=== PATIENT | female | born 1945 | race Caucasian/White ===

== ENCOUNTER 2021-01-29 12:20 | Inpatient (IN) | payer MEDICARE, OTHER ==
[~2021-01-29] VITALS: Ht 160 cm; Wt 81.6 kg
--- NOTE | 2021-01-29 12:23 | NUR ---
PT BIB [facility] FROM HOME. C/O "LIGHT HEADEDNESS",LOW BP UPON EMS ARRIVAL,400 ML NS GIVEN. RFA #18G S/L. PT A.OX3. TOLERATING R/A WELL WITH NO SOB. DENIES PAIN AT THIS TIME. CONNECTED PT TO POX AND MONITOR.
[2021-01-29] MEDS ORDERED: IV NS 0.9% 1,000 ML BAG IV ONE (12:30)
--- NOTE | 2021-01-29 12:35 | NUR ---
RFA #18G S/L; PATENT AND INTACT. BLOOD COLLECTED AND GIVEN TO LAB
--- NOTE | 2021-01-29 12:38 | NUR ---
COVID SWAB DONE AND SENT TO LAB
[2021-01-29 12:51] LABS: BASOPHILS % (AUTO) 0.7 % (0.0-2.0); HEMATOCRIT 30 % (33-45); HEMOGLOBIN 9.8 g/dL (11.5-14.8); LYMPHOCYTES # (AUTO) 0.9 K/uL (0.8-4.8); LYMPHOCYTES % (AUTO) 20.2 % (20.0-44.0); MEAN CORPUSCULAR HGB CONC 33 g/dl (31.0-36.0); MEAN CORPUSCULAR VOLUME 85 fL (82-100); MONOCYTES # (AUTO) 0.6 K/uL (0.1-1.30); MONOCYTES % (AUTO) 13.9 % (2.0-12.0); NEUTROPHILS % (AUTO) 64.2 % (43.0-81.0); PLATELET COUNT (AUTO) 230 K/uL (150-450); RED BLOOD CELL COUNT(AUTO) 3.48 MIL/uL (4.0-5.2); WHITE BLOOD COUNT (AUTO) 4.7 K/uL (4.3-11.0)
[2021-01-29 12:58] LABS: CALCIUM, SERUM 8.1 mg/dL (8.5-10.1); CARBON DIOXIDE 25 mmol/L (21-32); CHLORIDE 99 mmol/L (98-107); CREATININE 1.3 mg/dL (0.6-1.3); GLUCOSE 141 mg/dL (74-106); POTASSIUM 4.1 mmol/L (3.5-5.1); SODIUM SERUM 134 mmol/L (136-145); UREA NITROGEN, BLOOD 19 mg/dL (7-18)
[2021-01-29 13:05] LABS: ALANINE AMINOTRANSFERASE 72 U/L (12-78); ALBUMIN 3.6 g/dL (3.4-5.0); ALKALINE PHOSPHATASE 50 U/L (46-116); ASPARTATE AMINOTRANSFERASE 53 U/L (15-37); BILIRUBIN,DIRECT 0.1 mg/dL (0.0-0.2); BILIRUBIN,TOTAL 0.2 mg/dL (0.2-1.0); TOTAL PROTEIN, SERUM 7.1 g/dL (6.4-8.2)
--- NOTE | 2021-01-29 13:06 | NUR ---
COVID-19 POSITIVE PER COVID.
--- NOTE | 2021-01-29 13:10 | NUR ---
MOVE SHEET SUBMITTED
--- NOTE | 2021-01-29 13:12 | NUR ---
OFFERED TOILETING X2. PT UNABLE TO URINATE AT THIS TIME. WILL TRY AGAIN LATER
--- NOTE | 2021-01-29 13:27 | NUR ---
PHARMACIST NOTIFED VIOLET HANSEN THAT MEDICATION BAMLANIVIMAB NOT AVAILABLE.
[2021-01-29] MEDS ORDERED: BAMLANIVIMAB EUA (INVESTIGA.) 700 MG in IV NS 0.9% 180 ML IV ONE (13:30)
--- NOTE | 2021-01-29 13:30 | NUR ---
EPIC CALLED TRIPLE VALVE TESTER PAGE.
[2021-01-29] MEDS ORDERED: BACL10TA PO (13:46)
[2021-01-29] MEDS ORDERED: AMLO-213 PO (13:46)
[2021-01-29] MEDS ORDERED: FERR325T23 PO (13:46)
[2021-01-29] MEDS ORDERED: CHOL100062 PO (13:46)
[2021-01-29] MEDS ORDERED: GABA-536 PO (13:46)
[2021-01-29] MEDS ORDERED: BETA15CR4 TP (13:46)
[2021-01-29] MEDS ORDERED: MAGN400T26 PO (13:46)
[2021-01-29] MEDS ORDERED: ICOS1CAP PO (13:46)
[2021-01-29] MEDS ORDERED: CYAN-51 PO (13:46)
[2021-01-29] MEDS ORDERED: SERT25TA PO (13:46)
[2021-01-29] MEDS ORDERED: ESOM40CA PO (13:46)
[2021-01-29] MEDS ORDERED: ISOS30TA86 PO (13:46)
[2021-01-29] MEDS ORDERED: CARV25TA2 PO (13:46)
[2021-01-29] MEDS ORDERED: CLON0.1T PO (13:46)
[2021-01-29] MEDS ORDERED: POTA10TA10 PO (13:46)
[2021-01-29] MEDS ORDERED: MYRBETRIQ PO (13:46)
[2021-01-29] MEDS ORDERED: LINA290C PO (13:46)
[2021-01-29] MEDS ORDERED: FURO40TA5 PO (13:46)
[2021-01-29] MEDS ORDERED: MEMA10TA PO (13:46)
[2021-01-29] MEDS ORDERED: LOSA100T31 PO (13:46)
[2021-01-29] MEDS ORDERED: ASPI-1169 PO (13:46)
[2021-01-29] MEDS ORDERED: METF-440 PO (13:46)
[2021-01-29] MEDS ORDERED: MECL-182 PO (13:46)
[2021-01-29] MEDS ORDERED: FOLI0.4T6 PO (13:46)
[2021-01-29] MEDS ORDERED: GLIP5TAB13 PO (13:46)
[2021-01-29] MEDS ORDERED: HYDR-4076 PO (13:46)
[2021-01-29] MEDS ORDERED: DONE10TA44 PO (13:46)
[2021-01-29] MEDS ORDERED: CELE200C PO (13:46)
[2021-01-29] MEDS ORDERED: HYDR28.316 RC (13:46)
--- NOTE | 2021-01-29 13:52 | NUR ---
GOT BED 107 AFTER 1400
[2021-01-29] MEDS ORDERED: IV NS 0.9% 1,000 ML IV PRN (14:00)
[2021-01-29] MEDS ORDERED: LABETALOL 20 MG/4 ML VIAL IV PRN (14:00)
[2021-01-29] MEDS ORDERED: MORPHINE SULFATE INJ 2 MG/ML DISP.SYRIN IV PRN (14:00)
[2021-01-29] MEDS ORDERED: ACETAMINOPHEN 325 MG TABLET PO PRN (14:00)
[2021-01-29] MEDS ORDERED: hydrALAZINE HCL IV 20 MG VIAL IV PRN (14:00)
[2021-01-29] MEDS ORDERED: ONDANSETRON HCL/PF 4 MG/2 ML VIAL IVP PRN (14:00)
--- NOTE | 2021-01-29 14:26 | NUR ---
REPORT GIVEN TO YAMILKA JIMENEZ FOR HASEEB
--- NOTE | 2021-01-29 14:50 | NUR ---
ASPHALT SCREED OPERATOR NOTE PT RECEIVED FROM ER IN STABLE CONDITION ABLE TO WALK TO THE BED, ALERT AND ORIENTED X3/4 WITH NO SING OF DISTRESS OR SOB AT THIS TIME TOLERATING ROOM AIR VERY WELL O2 SAT 97%, PT IS ON AIRBORNE ISOLATION PRECAUTION POSITIVE FOR COVID 19, CAME FROM HOME COMPLAINING OF LIGHT HEADEDNESS. PT IS DIABETIC AND HYPERTENSIVE, SAFETY MEASURES IN PLACE ALARM ON BED LOCK AND IN LOWEST POSITION CALL LIGHT WITHIN REACH WILL CONTINUE TO MONITOR
--- NOTE | 2021-01-29 14:52 | NUR ---
PT TRANSFERRED TO [facility] VIA ACLS PROTOCOL
[2021-01-29 16:00] VITALS: BP 122/62
[2021-01-29] MEDS ORDERED: DEXTROSE 50%-WATER 50 ML DISP.SYRIN IV PRN (17:00)
[2021-01-29] MEDS ORDERED: INSULIN REGULAR, HUMAN 100 UNIT/ML 3 ML VIAL SQ PRN (17:00)
[2021-01-29] MEDS ORDERED: *INSULIN REGULAR(HUMULIN R)HUM 100 UNIT/ML VIAL SQ PRN (17:00)
[2021-01-29] MEDS ORDERED: BETAMETHASONE DIP 0.05% CREAM 15 GM TUBE TP PRN ×2 (17:00→17:10)
[2021-01-29] MEDS ORDERED: HYDROCORTISONE CR 30 GM TUBE RC PRN (17:00)
[2021-01-29] MEDS ORDERED: Medication Not On Formulary EA (Icosapent Ethyl (Vascepa) 1 GM) PO SCH (17:00)
[2021-01-29] MEDS: hydrALAZINE HCL 25 MG TABLET PO SCH (17:23)
[2021-01-29] MEDS: FERROUS SULFATE (325 MG) 325 MG/TAB TABLET PO SCH (17:23)
[2021-01-29] MEDS: GABAPENTIN 400 MG CAPSULE PO SCH (17:23)
[2021-01-29] MEDS ORDERED: MECLIZINE HCL 12.5 MG TABLET PO PRN (17:30)
[2021-01-29] MEDS: BLOOD SUGAR DIAGNOSTIC 1 EACH STRIP VI SCH ×2 (18:09→22:04)
[2021-01-29] MEDS ORDERED: IV NS 0.9% 1,000 ML IV ONE (18:30)
--- NOTE | 2021-01-29 18:44 | NUR ---
RN CLOSING NOTE PT REMAINS IN STABLE CONDITION ALERT AND ORIENTED X3/4 WITH NO SING OF DISTRESS OR SOB AT THIS TIME TOLERATING ROOM AIR WITHOUT PROBLEM O2 SAT 97%, PT IS ON AIRBORNE ISOLATION PRECAUTION POSITIVE FOR COVID 19, IV RFA #18 PATENT AND FLUSHING WELL RUNNING NS 125ML/HR CONSUMED 100% OF THE DINNER ALL NEEDS MET, SAFETY MEASURES IN PLACE ALARM ON BED LOCK AND IN LOWEST POSITION CALL LIGHT WITHIN REACH WILL ENDORSE TO MANOMETER TECHNICIANWORKS MANAGER
--- NOTE | 2021-01-29 19:55 | NUR ---
RN OPENING NOTE RECIEVED PATIENT RESTING IN BED, ALERT AND ORIENTED X3/4 WITH NO S/S OF DISTRESS OR SOB AT THIS TIME TOLERATING ROOM AIR WITHOUT PROBLEM O2 SAT 97%, PT IS ON AIRBORNE ISOLATION PRECAUTION POSITIVE FOR COVID 19, IV RFA #18 PATENT AND FLUSHING WELL RUNNING NS 125ML/HR. PATIENT ON TELE MONITOR, WITH HR OF 77 AND SR. ALL ISOLATION AND SAFETY PRECAUTIONS TAKEN, ALARM ON BED LOCK AND IN LOWEST POSITION CALL LIGHT WITHIN REACH.
[2021-01-29 20:00] VITALS: BP 125/57
[2021-01-29 22:13] VITALS: BP 125/57
[2021-01-30] VITALS: BP 132/53
[2021-01-30 04:00] VITALS: BP 128/58
--- NOTE | 2021-01-30 04:55 | NUR ---
RN NOTE PATIENT COMPLAINING OF LEG/ FEET PAIN, TINGLING AND DISCOMFORT. MORPHINE ADMINISTERED, PER PATIENT IT DID NOT HELP, SHE IS STILL EXPERIENCING PAIN IN THE EXTREMITIES. SPOKE WITH ALYCIA Grayson NP ABOUT LAST DOSE OF GABAPENTIN BEING GIVEN DURING DAY SHIFT. ALYCIA ORDER GABAPENTIN 400MG ONE TIME DOSE. ORDER NOTED AND CARRIED OUT.
[2021-01-30] MEDS ORDERED: GABAPENTIN 400 MG CAPSULE PO ONE (05:00)
--- NOTE | 2021-01-30 06:27 | NUR ---
RN CLOSING NOTE PATIENT RESTING IN BED , ALERT AND ORIENTED X3/4 WITH NO S/S OF DISTRESS OR SOB AT THIS TIME TOLERATING ROOM AIR WITHOUT PROBLEM O2 SAT 97%, PT IS ON ISOLATION PRECAUTIONS, POSITIVE FOR COVID 19, IV RFA #18 PATENT AND FLUSHING WELL. PATIENT ON TELE MONITOR, WITH HR OF 78 AND SR. PATIENT IS ABLE TO AMBULATE TO THE RESTROOM WITH ASSISTANCE, AND IS MOSTLY INDEPENDENT. ALL ISOLATION AND SAFETY PRECAUTIONS TAKEN, ALARM ON BED LOCK AND IN LOWEST POSITION, CALL LIGHT WITHIN REACH.
[2021-01-30 07:06] LABS: BASOPHILS % (AUTO) 0.9 % (0.0-2.0); EOSINOPHILS % (AUTO) 1.1 % (0.0-6.0); HEMATOCRIT 29 % (33-45); LYMPHOCYTES # (AUTO) 1.1 K/uL (0.8-4.8); LYMPHOCYTES % (AUTO) 31.3 % (20.0-44.0); MEAN CORPUSCULAR HGB CONC 34 g/dl (31.0-36.0); MEAN CORPUSCULAR VOLUME 85 fL (82-100); MONOCYTES # (AUTO) 0.5 K/uL (0.1-1.30); MONOCYTES % (AUTO) 12.6 % (2.0-12.0); NEUTROPHILS % (AUTO) 54.1 % (43.0-81.0); PLATELET COUNT (AUTO) 220 K/uL (150-450); RED BLOOD CELL COUNT(AUTO) 3.45 MIL/uL (4.0-5.2); WHITE BLOOD COUNT (AUTO) 3.7 K/uL (4.3-11.0)
[2021-01-30 07:24] LABS: ALBUMIN 3.3 g/dL (3.4-5.0); BILIRUBIN,TOTAL 0.2 mg/dL (0.2-1.0); CALCIUM, SERUM 8.6 mg/dL (8.5-10.1); MAGNESIUM 1.7 mg/dL (1.8-2.4); PHOSPHORUS 4.3 mg/dL (2.5-4.9); TOTAL PROTEIN, SERUM 6.8 g/dL (6.4-8.2)
--- NOTE | 2021-01-30 07:36 | NUR ---
RN OPENING NOTES Patient seen comfortably lying in bed, no apparent distress noted, respirations even and unlabored, no SOB, denies any pain or discomfort at this time, no grimacing. Call light left within reach, safety precautions in place, brakes locked, side rails up X 2, will monitor closely for any changes.
[2021-01-30 08:00] VITALS: BP 130/57
[2021-01-30] MEDS: BLOOD SUGAR DIAGNOSTIC 1 EACH STRIP VI SCH ×2 (08:07→11:58)
[2021-01-30] MEDS ORDERED: MAGNESIUM OXIDE 400 MG TABLET PO SCH (09:00)
[2021-01-30] MEDS ORDERED: LOSARTAN POTASSIUM 50 MG TABLET PO SCH (09:00)
[2021-01-30] MEDS ORDERED: SERTRALINE HCL 25 MG TABLET PO SCH (09:00)
[2021-01-30] MEDS ORDERED: DONEPEZIL 5 MG TABLET PO SCH (09:00)
[2021-01-30] MEDS ORDERED: MEMANTINE HCL 5 MG TABLET PO SCH (09:00)
[2021-01-30] MEDS ORDERED: POTASSIUM CHLORIDE 10 MEQ TABLET.SA PO SCH (09:00)
[2021-01-30] MEDS ORDERED: ASPIRIN 81 MG TAB.CHEW PO SCH (09:00)
[2021-01-30] MEDS ORDERED: FOLIC ACID 1 MG TABLET PO SCH (09:00)
[2021-01-30] MEDS ORDERED: AMLODIPINE BESYLATE 10 MG TABLET PO SCH (09:00)
[2021-01-30] MEDS ORDERED: FUROSEMIDE 40 MG TABLET PO SCH (09:00)
[2021-01-30] MEDS ORDERED: CYANOCOBALAMIN 500 MCG TABLET PO SCH (09:00)
[2021-01-30] MEDS ORDERED: BACLOFEN (10 MG) 10 MG TABLET PO SCH (09:00)
[2021-01-30] MEDS ORDERED: ISOSORBIDE MONONITRATE (30MG) 30 MG TAB.SR.24H PO SCH (09:00)
[2021-01-30] MEDS: FERROUS SULFATE (325 MG) 325 MG/TAB TABLET PO SCH (09:21)
[2021-01-30] MEDS: GABAPENTIN 400 MG CAPSULE PO SCH ×2 (09:22→12:02)
[2021-01-30] MEDS: hydrALAZINE HCL 25 MG TABLET PO SCH ×2 (09:23→12:02)
[2021-01-30] MEDS ORDERED: MAGNESIUM OXIDE 400 MG TABLET PO ONE (10:00)
[2021-01-30] MEDS ORDERED: BETAMETHASONE DIP 0.05% CREAM 15 GM TUBE TP PRN (11:00)
[2021-01-30 12:00] VITALS: BP 131/50
[2021-01-30 12:02] VITALS: BP 131/50
--- NOTE | 2021-01-30 14:26 | NUR ---
Patient to be discharged home today, no apparent distress noted, no shortness of breath, no respiratory distress, no nausea, no vomiting denies any pain or discomfort, abdominal bowel sound present in all quadrants, no grimacing when abdomen palpated. Patient made aware of the situation, she signed all discharge paperwork, all belongings taken, inventory list signed by patient. Health teaching provided, verbalized understanding and gratitude. Skin assessment done prior to discharge, skin intact, warm to touch, no pallor or cyanosis noted. Peripheral IV removed prior to discharge and covered with dry dressing. Name wristband removed prior to discharge, surgical mask provided for patient to use. RN assisted patient going to the hospital parking lot via wheelchair, left unit at 1425, stable condition, exitcare documents handed to patient.
== END 2021-01-30 14:25 | disposition home or self-care (01) | DRG 178 ==
LOC: ER 12:34 → TELE1 14:06
PROVIDERS: ADMIT Internal Medicine; ATTEND Internal Medicine
DX: U07.1 COVID-19 (principal); E87.2 Acidosis; E86.0 Dehydration; I95.9 Hypotension, unspecified; I10 Essential (primary) hypertension; E11.40 Type 2 diabetes mellitus with diabetic neuropathy, unspecified; Z95.5 Presence of coronary angioplasty implant and graft; Z88.0 Allergy status to penicillin
CPT/HCPCS: 36415; 71045-TC; 80048-TC; 80053-TC; 80076-TC; 83605-TC; 83735-TC; 84100-TC; 84484-TC; 85025-TC; 85730-TC; 87040-TC; 87081-TC; G0378; J1815; J2270; J7030; J7050; J8597; Q0239